=== PATIENT | female | born 1995 | race Caucasian/White ===

== ENCOUNTER 2024-02-09 09:39 | Emergency (ER) | payer OTHER ==
[~2024-02-09] VITALS: Ht 152.4 cm; Wt 94.3 kg
[2024-02-09 10:15] VITALS: BP_SYST 124; PULSE 86; RESP 18; TEMP 97.8; O2SAT 96
[2024-02-09 10:49] LABS: BASOPHILS % (AUTO) 0.4 % (0.0-2.0); EOSINOPHILS # (AUTO) 0.3 K/uL (0.0-0.4); EOSINOPHILS % (AUTO) 3.3 % (0.0-4.0); HEMATOCRIT 43.2 % (36-48); HEMOGLOBIN 14.8 g/dL (12.0-16.0); LYMPHOCYTES # (AUTO) 2.7 K/uL (1.0-5.5); LYMPHOCYTES % (AUTO) 34.2 % (20.5-51.5); MEAN CORPUSCULAR HEMOGLOBIN 30 pg (27-31); MEAN CORPUSCULAR HGB CONC 34 % (32-36); MEAN CORPUSCULAR VOLUME 86 fL (79.0-98.0); MONOCYTES # (AUTO) 0.4 K/uL (0.0-1.0); MONOCYTES % (AUTO) 5.5 % (1.7-9.3); NEUTROPHILS # (AUTO) 4.4 K/uL (1.8-7.7); NEUTROPHILS % (AUTO) 56.6 % (40.0-70.0); PLATELET COUNT (AUTO) 300 K/uL (130-430); RED BLOOD CELL COUNT(AUTO) 5.03 MIL/uL (4.2-6.2); RED CELL DISTRIBUTION WIDTH 12.8 % (9.0-15.0); WHITE BLOOD COUNT (AUTO) 7.8 K/uL (4.8-10.8)
[2024-02-09] MEDS: FAMOTIDINE 20 MG TABLET PO ONE (11:07)
[2024-02-09] MEDS: MAG-AL HYDROX/SIMETH 30 ML UDC PO ONE (11:07)
[2024-02-09] MEDS: ONDANSETRON 4 MG ODT TAB PO ONE (11:07)
[2024-02-09 11:16] LABS: ALBUMIN 3.4 g/dL (3.4-4.8); BILIRUBIN,DIRECT 0.1 mg/dL (0.0-0.3); CREATININE 0.86 mg/dL (0.55-1.30); POTASSIUM 4.4 mmol/L (3.5-5.1); TOTAL BILIRUBIN 0.5 mg/dL (0.0-1.0); TOTAL PROTEIN, SERUM 7.6 g/dL (6.4-8.3)
[2024-02-09 12:43] LABS: BILIRUBIN,URINE NEGATIVE (NEGATIVE); BLOOD, URINE NEGATIVE (NEGATIVE); CLARITY/URINE CLEAR (CLEAR); COLOR,URINE YELLOW (YELLOW); GLUCOSE,URINE NEGATIVE (NEGATIVE); KETONES,URINE NEGATIVE (NEGATIVE); LEUKOCYTE ESTERASE ,URINE NEGATIVE (NEGATIVE); NITRITE, URINE NEGATIVE (NEGATIVE); PROTEIN URINE NEGATIVE (NEGATIVE); UROBILINOGEN,URINE 0.2 (0.2-1.0)
[2024-02-09] MEDS ORDERED: OMEP20CA15 PO (13:27)
[2024-02-09] MEDS ORDERED: ONDA-8 TL (13:27)
[2024-02-09] MEDS ORDERED: ACET-2634 PO (13:27)
[2024-02-09 13:40] VITALS: BP_SYST 130; PULSE 70; RESP 12; TEMP 98.1; O2SAT 99
== END 2024-02-09 13:40 | disposition home or self-care (01) ==
LOC: SED 09:39
DX: R10.13 Epigastric pain (principal); K29.70 Gastritis, unspecified, without bleeding; K27.9 Peptic ulcer, site unspecified, unspecified as acute or chronic, without hemorrhage or perforation; Z79.899 Other long term (current) drug therapy; Z79.2 Long term (current) use of antibiotics
CPT/HCPCS: 99284; 76705; 80076; 80048; 81001; 83690; 85025; 36415; 81025; Q0162; 81003